=== PATIENT | female | born 1945 | race Caucasian/White ===

== ENCOUNTER 2018-09-10 20:24 | Emergency (ER) | payer OTHER ==
[2018-09-10 20:35] VITALS: BP 119/78; PULSE 67; TEMP 98.2; BMI 19.5
--- NOTE | 2018-09-10 20:43 | PDOC ---
History of Present Illness - History of Present Illness Initial Comments: 09/10/18 20:48 The patient is a 73 year old female, very poor historian, with a significant past medical history of dementia (currently on medications) and breast CA s/p lumpectomy (side unspecified) who presents to the emergency department with family for complaint of abdominal pain, chest pain, and left arm numbness this evening. The daughter at bedside states her mother does not usually complain of these symptoms which prompted their visit. Adult PAST MEDICAL HISTORY: dementia PAST SURGICAL HISTORY: s/p lumpectomy FAMILY HISTORY: no pertinent history SOCIAL HISTORY: Pt lives with family and is employed. MEDICATIONS: reviewed ALLERGIES: As per nursing notes ROS General: No fevers or chills, no weakness, no weight loss HEENT: No change in vision. No sore throat,. No ear pain CardioVascular: (+) chest pain, No shortness of breath Respiratory:No cough, or wheezing. Gastrointestinal:(+) abdominal pain. no nausea, vomiting, diarrhea or constipation, No rectal bleeding Genitourinary: No dysuria, hematuria, or frequency Musculoskeletal: No joint or muscle pain or swelling Neurologic: (+) Left arm numbness. No headache, vertigo, dizziness or loss of consciousness Psychiatric: nor depression Skin: No rashes or easy bruising Endocrine: no increased thirst or abnormal weight change Allergic: no skin or latex allergy All other systems reviewed and normal Exam: General: Well-nourished well-developed individual, no acute distress HEENT: Throat: Normal, tonsils normal, no erythema or exudate Neck: Supple, no meningeal signs, no lymphadenopathy Eyes::Pupils equal reactive and round, extraocular motion intact Chest: Nontender to palpation Cardiac: S1-S2 normal, regular rate and rhythm, no murmurs rubs or gallops Respiratory: Lungs clear to auscultation bilateral Abdomen: Soft, nondistended, normal bowel sounds, nontender to palpation diffusely Extremities: Warm, dry, no cyanosis, clubbing, or edema Skin: No rashes Neuro: Alert and awake. Confused at baseline secondary to dementia, does not answer questions. Difficulty following commands. nonfocal exam, grossly intact, normal gait <Katalina Domingo - Last Filed: 09/10/18 21:03> - General History Source: Family Exam Limitations: Dementia - History of Present Illness Initial Comments: 09/10/18 20:41 Patient is severely demented and does not answer questions and has difficulty following commands. 09/10/18 21:30 A portion of this note was documented by scribe services under my direction. I have reviewed the details of the note, within reason, and agree with the documentation with the following case summary and management plan written by me. Patient treated in the ED. Nursing notes are reviewed and incorporated into the medical decision-making. Vital signs reviewed. Assessment and plan: This is a demented 73-year-old brought in by her daughter for evaluation of chest pain and abdominal pain with some questionable arm numbness. History is difficult as patient is demented and does not answer questions. It is uncertain as to how the daughter knew that her mother was having these complaints however I will obtain a work including CBC, comp, EKG and chest x-ray. EKG showed normal sinus rhythm at a rate of 61, no acute ST-T wave changes normal EKG Chest x-ray negative for any acute pathology reviewed by me Patient has a normal CBC and normal chemistries with the exception of a mildly elevated glucose of 122. Patient without complaints here in the emergency room has normal vitals and will be discharged home with her family to follow-up with her doctor on Wednesday <Robert Clark I - Last Filed: 09/10/18 22:06> - General Chief Complaint: Pain Stated Complaint: ABD/CHEST PAIN Time Seen by Provider: 09/10/18 20:27 Past History <Katalina Domingo - Last Filed: 09/10/18 21:03> - Past Medical History Cancer: Yes (BREAST) COPD: No Dementia: Yes - Surgical History Abdominal Surgery: Yes (HERNIA) - Suicide/Smoking/Psychosocial Hx Smoking History: Unknown if ever smoked Have you smoked in the past 12 months: No Information on smoking cessation initiated: No <Robert Clark I - Last Filed: 09/10/18 22:06> - Past Medical History Allergies/Adverse Reactions: Allergies Allergy/AdvReac Type Severity Reaction Status Date / Time No Known Allergies Allergy Unverified 09/10/18 20:25 Home Medications: Ambulatory Orders Clonazepam 1 mg PO BID 09/10/18 Memantine HCl 10 mg PO DAILY 09/10/18 Quetiapine Fumarate [Seroquel -] 50 mg PO BID 09/10/18 *Physical Exam - Vital Signs Last Vital Signs Temp Pulse Resp BP Pulse Ox 98.2 F 67 16 119/78 97 09/10/18 20:25 09/10/18 20:25 09/10/18 20:25 09/10/18 20:25 09/10/18 20:25 <Katalina Domingo - Last Filed: 09/10/18 21:03> - Vital Signs Last Vital Signs Temp Pulse Resp BP Pulse Ox 98.2 F 67 16 119/78 97 09/10/18 20:25 09/10/18 20:25 09/10/18 20:25 09/10/18 20:25 09/10/18 20:25 <Robert Clark I - Last Filed: 09/10/18 22:06> Heart Score/ECG Review - ECG Intrepretation Comment:: 09/10/18 21:03 EKG was read at 21:[address] Clark Impression: Normal sinus rhythm Vent Rate 61 bpm W[place] Interval 144 ms QTc 442 ms <Katalina Domingo - Last Filed: 09/10/18 21:03> - History History: Slightly suspicious - Electrocardiogram EKG: Normal - Age Age: >/= 65 - Risk Factors Based on the list above the patient has:: No risk factors known - Troponin Troponin: </= normal limit - Score Heart Score - Total: 2 <Robert Clark I - Last Filed: 09/10/18 22:06> ED Treatment Course - LABORATORY CBC & Chemistry Diagram: 09/10/18 20:50 09/10/18 20:50 <Robert Clark I - Last Filed: 09/10/18 22:06> *DC/Admit/Observation/Transfer - Attestations Scribe Attestion: 09/10/18 20:48 Documentation prepared by Katalina Domingo, acting as medical technologist for Robert Clark MD <Katalina Domingo - Last Filed: 09/10/18 21:03> <Robert Clark I - Last Filed: 09/10/18 22:06> Diagnosis at time of Disposition: Chest pain, atypical Abdominal pain Qualifiers: Abdominal location: unspecified location Qualified Code(s): R10.9 - Unspecified abdominal pain Dementia Qualifiers: Dementia type: unspecified type - Discharge Dispostion Disposition: HOME Condition at time of disposition: Stable - Referrals Referrals: Rachelle Lim MD [Primary Care Provider] - - Patient Instructions Additional Instructions: Her workup was normal including cardiogram, chest x-ray and blood work.. Take her home give her her normal medications and follow up with her primary care doctor on Wednesday if she still has complaint of any symptoms, Return to the emergency department immediately with ANY new, persistent or worsening symptoms. Continue any medications as previously prescribed by your physician. You should follow up with your primary doctor as soon as possible regarding today's emergency department visit. . Please make sure your doctor reviews the results of your emergency evaluation. Thank you for coming to the Emergency Department today for your care. It was a pleasure to see you today. Please note that your evaluation is INCOMPLETE until you follow-up with your doctor. - Post Discharge Activity
[2018-09-10 21:27] LABS: ALBUMIN 3.7 g/dl (3.5-5.0); ALK PHOS 73 U/L (32-92); ANION GAP 9 MMOL/L (8-16); BILIRUBIN,TOTAL 0.2 mg/dl (0.2-1.0); BLOOD UREA NITROGEN 20 mg/dl (7-18); CALCIUM 8.8 mg/dl (8.4-10.2); CHLORIDE 102 mmol/L (98-107); CO2 26 mmol/L (22-28); CREATININE 0.8 mg/dl (0.6-1.3); GLUCOSE,RANDOM 122 mg/dl (74-106); POTASSIUM 3.6 mmol/L (3.5-5.1); SGOT/AST 18 U/L (10-42); SGPT/ALT 10 U/L (10-40); SODIUM 137 mmol/L (136-145); TOT PROT 6.9 g/dl (6.4-8.3)
[2018-09-10 21:34] LABS: BASO % 0.5 % (0-2.0); EOS % 1.6 % (0-4.5); HEMATOCRIT 35.5 % (32.4-45.2); HEMOGLOBIN 11.9 GM/dl (10.7-15.3); LYMPH % 13.4 % (8-40); MCH 29.8 pg (25.7-33.7); MCHC 33.5 g/dl (32.0-36.0); MEAN CELL VOLUME 88.8 fl (80-96); MEAN PLT VOLUME 9.5 fl (7.5-11.1); MONO % 6.1 % (3.8-10.2); NEUT % 78.4 % (42.8-82.8); PLATELET COUNT 308 K/MM3 (134-434); RDW 12.5 % (11.6-15.6); WHITE BLOOD COUNT 9.8 K/mm3 (4.0-10.8)
[2018-09-10 22:13] LABS: PH,URINE 5.5 (4.5-8); URINE BILIRUBIN Negative (NEGATIVE); URINE COLOR Yellow; URINE GLUCOSE (UA) Negative (NEGATIVE); URINE KETONE Negative (NEGATIVE); URINE LEUK ESTERASE Negative (NEGATIVE); URINE NITRITE Negative (NEGATIVE); URINE PROTEIN Negative (NEGATIVE); URINE UROBILINOGEN 0.2 (0.2-1.0)
[2018-09-10 22:25] LABS: URINE APPEARANCE SL CLOUDY
[2018-09-10 22:26] LABS: AMORP URATES 4+ /hpf (NONE SEEN); EPI CELLS FEW /HPF; URINE BACTERIA 1+ /hpf (NEGATIVE); URINE WBC 0-2 (0-5)
[2018-09-10 22:36] LABS: LIPASE 172 U/L (73-393)
--- NOTE | 2018-09-11 13:45 | EKG ---
Test Reason : Blood Pressure : / mmHG Vent. Rate : 061 BPM Atrial Rate : 061 BPM P-R Int : 144 ms QRS Dur : 088 ms QT Int : 440 ms P-R-T Axes : 068 053 061 degrees QTc Int : 442 ms NORMAL SINUS RHYTHM NORMAL ECG NO PREVIOUS ECGS AVAILABLE Confirmed by MERISSA BAKER MD ([id number]) on 09/11/2018 1:45:25 PM Referred By: NEREIDA ARMENDARIZ Confirmed By:MERISSA BAKER MD
== END 2018-09-10 22:14 | disposition home or self-care (01) ==
LOC: EDSEX → FER 20:24
DX: R07.89 Other chest pain (principal); R10.9 Unspecified abdominal pain; F03.90 Unspecified dementia, unspecified severity, without behavioral disturbance, psychotic disturbance, mood disturbance, and anxiety; Z85.3 Personal history of malignant neoplasm of breast
CPT/HCPCS: 36415; 71045-TC-FY; 80053; 81003; 81015; 82550; 83690; 84484; 85025; 93005; 99283-25

== ENCOUNTER 2018-12-14 20:00 | Emergency (ER) | payer OTHER ==
--- NOTE | 2018-12-14 20:12 | PDOC ---
History of Present Illness - General History Source: Family Exam Limitations: Dementia - History of Present Illness Initial Comments: 12/14/18 20:36 The patient is a 73 year old female presenting with family, with a significant past medical history of breast CA, constipation and dementia, who presents to the ED complaining of lower extremity edema, suprapubic pain, back pain and dysuria. According to the family the patient has been having these symptoms for the last couple of days. The daughter states that the patient was able to walk a few miles just a few weeks ago and now the patient barely has the energy to eat by herself. The patient last saw her PCP a few months ago and was last in the ED last month, at the time all the blood work was within normal limits. On presentation the patient is nonverbal and does not cooperate with the exam. Allergies: None Past surgical history: Abdominal hernia surgery Social History: No alcohol, tobacco or drug use reported <Ramses Leon - Last Filed: 12/14/18 20:35> <Suzi Cardoza - Last Filed: 12/15/18 00:55> - General Chief Complaint: Edema Stated Complaint: BILAT LW LEG SWELLING Time Seen by Provider: 12/14/18 20:12 Past History <Ramses Leon - Last Filed: 12/14/18 20:35> - Past Medical History Cancer: Yes (BREAST) COPD: No Dementia: Yes (X5 YRS) - Surgical History Abdominal Surgery: Yes (HERNIA) - Suicide/Smoking/Psychosocial Hx Smoking History: Unknown if ever smoked Have you smoked in the past 12 months: No Number of Cigarettes Smoked Daily: 0 Information on smoking cessation initiated: No Hx Alcohol Use: No Drug/Substance Use Hx: No <Suzi Cardoza - Last Filed: 12/15/18 00:55> - Past Medical History Allergies/Adverse Reactions: Allergies Allergy/AdvReac Type Severity Reaction Status Date / Time No Known Allergies Allergy Unverified 09/10/18 20:25 Home Medications: Ambulatory Orders Clonazepam 1 mg PO BID 09/10/18 Memantine HCl 10 mg PO DAILY 09/10/18 Quetiapine Fumarate [Seroquel -] 50 mg PO BID 09/10/18 Review of Systems - Review of Systems Able to Perform ROS?: No Comments:: 12/14/18 20:36 Unable to obtain ROS due to patient Dementia <Ramses Leon - Last Filed: 12/14/18 20:35> *Physical Exam - Vital Signs Last Vital Signs Temp Pulse Resp BP Pulse Ox 97.7 F 78 14 114/66 97 12/14/18 20:04 12/14/18 20:04 12/14/18 20:04 12/14/18 20:04 12/14/18 20:04 - Physical Exam Comments: 12/14/18 20:36 Constitutional: Awake, (+) Cachectic, nonverbal, not cooperating with exam. No acute distress. Head: Normocephalic. Atraumatic Eyes: PERRL. EOMI. Conjunctivae are not pale. ENT: Mucous membranes are moist and intact. Posterior pharynx without exudates or erythema. Uvula midline. Neck: Supple. Full ROM. No lymphadenopathy. Cardiovascular: Regular rate. Regular rhythm. S1, S2 regular. Distal pulses are 2+ and symmetric. Pulmonary/Chest: No evidence of respiratory distress. Clear to auscultation bilaterally No wheezing, rales or rhonchi. Abdominal: Soft and non-distended. There is no tenderness. No rebound, guarding or rigidity. No organomegaly. No palpable masses. Good bowel sounds. Back: No CVA tenderness. Musculoskeletal: (+) 2+ nonpitting edema of the lower extremities to the mid calf. No tenderness or palpable cords. No open wounds or erythema Skin: Skin is warm and dry. No petechiae. No purpura. Neurological: Cranial nerves II-XII are grossly intact. Strength is grossly symmetric. No sensory deficits. <Ramses Leon - Last Filed: 12/14/18 20:35> - Vital Signs Last Vital Signs Temp Pulse Resp BP Pulse Ox 97.7 F 78 14 114/66 97 12/14/18 20:04 12/14/18 20:04 12/14/18 20:04 12/14/18 20:04 12/14/18 20:04 <Suzi Cardoza - Last Filed: 12/15/18 00:55> Moderate Sedation - Procedure Monitoring Vital Signs: Procedure Monitoring Vital Signs Temperature 97.7 F 12/14/18 20:04 Pulse Rate 78 12/14/18 20:04 Respiratory Rate 14 12/14/18 20:04 Blood Pressure 114/66 12/14/18 20:04 O2 Sat by Pulse Oximetry (%) 97 12/14/18 20:04 <Ramses Leon - Last Filed: 12/14/18 20:35> - Procedure Monitoring Vital Signs: Procedure Monitoring Vital Signs Temperature 97.7 F 12/14/18 20:04 Pulse Rate 78 12/14/18 20:04 Respiratory Rate 14 12/14/18 20:04 Blood Pressure 114/66 12/14/18 20:04 O2 Sat by Pulse Oximetry (%) 97 12/14/18 20:04 <Suzi Cardoza - Last Filed: 12/15/18 00:55> Medical Decision Making - Medical Decision Making Documentation has been prepared under my direction and personally reviewed by me in its entirety. I attest that this documented accurately reflects all work, treatment, procedures and medical decision making performed by me. As noted above, this 73-year-old woman with a history of dementia is brought into the emergency room by her daughter, accompanied by the patient's home health aide. Patient has apparently expressed discomfort with urination to the health aide/daughter although she was nonverbal here in the emergency room. Also, daughter noted that the patient's lower legs have become more edematous in the past few weeks. Daughter states that her appetite has decreased over the last several weeks . No other significant abnormalities including fever/ chills, difficulty breathing, vomiting/diarrhea are present. Exam as noted. In order to ascertain with the patient has a urinary tract infection, urine sample obtained via catheterization . Urinalysis dipstick is negative; microscopic analysis shows 0-2 RBCs/3-5 WBCs/ few epithelial cells/1+ bacteria hearing culture and sensitivity sent Patient's bilateral ankle edema is nonpitting; lung exam is unremarkable without evidence of rhonchi or rales. It was explained to the patient's daughter that follow-up with the patient's PMD is essential for full workup of her lower extremity edema. Since there is no overt evidence for volume overload/CHF, with patient showing no evidence of respiratory distress, outpatient workup is appropriate. Since her lower extremity edema could be secondary to hypoalbuminemia, nutritional status should be optimized. High protein shakes suggested as a supplement in her diet The patient should be returned to the ER if she has fever, indication of more severe abdominal pain, vomiting <Suzi Cardoza - Last Filed: 12/15/18 00:55> *DC/Admit/Observation/Transfer - Attestations Scribe Attestion: 12/14/18 20:36 Documentation prepared by Ramses Leon, acting as medical education manager for Suzi Cardoza MD <Ramses Leon - Last Filed: 12/14/18 20:35> <Suzi Cardoza - Last Filed: 12/15/18 00:55> Diagnosis at time of Disposition: Bilateral lower extremity edema Dementia Qualifiers: Dementia type: unspecified type Dementia behavioral disturbance: with behavioral disturbance Qualified Code(s): F03.91 - Unspecified dementia with behavioral disturbance - Discharge Dispostion Disposition: HOME Condition at time of disposition: Stable - Patient Instructions Printed Discharge Instructions: DI for Peripheral Edema -- Bilateral Additional Instructions: maintain good caloric intake / plenty of fluids consider protein supplement such as Ensure High Protein shakes return to ER if severe pain/fever/vomiting occurs followup with your doctor within 1 week(call office tomorrow)
[2018-12-14 20:17] VITALS: BP 114/66; PULSE 78; TEMP 97.7; BMI 17.6
[2018-12-14 20:51] LABS: URINE APPEARANCE Clear; URINE BILIRUBIN 1+ (NEGATIVE); URINE COLOR Yellow; URINE GLUCOSE (UA) Negative (NEGATIVE); URINE KETONE Negative (NEGATIVE); URINE LEUK ESTERASE Negative (NEGATIVE); URINE NITRITE Negative (NEGATIVE); URINE PROTEIN 1+ (NEGATIVE)
[2018-12-14 21:11] LABS: URINE RBC 0-2 /hpf (0-3)
[2018-12-14 21:12] LABS: EPI CELLS FEW /HPF; URINE BACTERIA 1+ /hpf (NEGATIVE)
== END 2018-12-14 21:31 | disposition home or self-care (01) ==
LOC: FER 20:00
DX: M79.89 Other specified soft tissue disorders (principal); F03.91 Unspecified dementia, unspecified severity, with behavioral disturbance; Z85.3 Personal history of malignant neoplasm of breast; F03.90 Unspecified dementia, unspecified severity, without behavioral disturbance, psychotic disturbance, mood disturbance, and anxiety
CPT/HCPCS: 81003; 81015; 87086; 99283-25